=== PATIENT | female | born 1990 | race Caucasian/White ===

== ENCOUNTER → 2016-10-29 | Outpatient (CLI) | payer BC ==
[~2016-10-29] MED LIST: BIRTH CONTROL TOP; PRENTAB26 PO; ZNTT/150 PO
== END | disposition home or self-care (01) ==
LOC: C.PAPS 07:50
PROVIDERS: ATTEND Obstetrics & Gynecology
DX: Z01.419 Encounter for gynecological examination (general) (routine) without abnormal findings (principal); Z30.9 Encounter for contraceptive management, unspecified

== ENCOUNTER 2018-11-05 14:15 | Inpatient (IN) ==
[2018-11-05] MEDS ORDERED: LACTATED RINGER'S 1,000 ML IV PRN (15:02)
[2018-11-05] MEDS ORDERED: OXYTOCIN 30 UNITS/500 ML BAG IV PRN ×3 (15:02→23:05)
--- NOTE | 2018-11-05 15:07 | History & Physical Report ---
Date of Service November 05, 2018 38 weeks sent over from the office where she was assessed with an amnio sure which was positive patient says she may have had. a gush of fluid at 8 PM yesterday and then she had some ongoing leakage this morning she waited to her appointment to address this with the physicians in the office at that time she was found to be 1 cm and AmniSure positive Assessment & Plan (1) PROM (premature rupture of membranes): PROM as much as 19 hours ago. GBS neg and no signs of chorio, so do not recommend antibiotics Admit, start pitocin. History of Present Illness Primary Care Provider: NO PCP Allergies Allergy/AdvReac Type Severity Reaction Status Date / Time nitrofurantoin Allergy Severe throat Verified 06/03/18 22:02 swells sob, ITCHY RASH Home Medications Home Medications Medication Instructions Recorded Confirmed Type PNV cmb#95-ferrous fumarate-FA 1 tab PO DAILY 06/03/18 11/05/18 History [] citalopram [Celexa] 40 mg PO DAILY 06/03/18 11/05/18 History pantoprazole [Protonix] 40 mg PO DAILY 06/03/18 11/05/18 History Patient History Medical History Disruption of perineal obstetric wound, condition or complication Acid reflux Anxiety Arthritis Depression Gestational diabetes mellitus Irritable bowel syndrome Surgical History History of myringotomy Family History Other No significant family history Social History Preferred Language: [place]i Communication Ability: Effective Communication Clerk Required: No Beliefs That Will Affect Care: None marital status: Current Living Situation: Spouse Other Information That Helps Us Care for You: No Feels Safe at Home: Yes Smoking Status: Never smoker Do You Dip or Chew Tobacco: No Second Hand Exposure: No Tobacco Cessation Education Requested by Patient: No Hx Alcohol Use: No Hx Substance Use: No Physical Exam Constitutional: WD/WN, vitals as above Respiratory: normal respiratory effort, lungs clear to auscultation Cardiovascular: RRR, no murmur, no edema Genitourinary: OB Exam Abdomen: + vertex Manual OB Exam: + cervical dilation 2 cm and + cervical effacement 50% Results & Data Vital Signs (Past 12 Hours) Vital Signs Temp Pulse Resp BP 11/05/18 14:30 37.0 C 97 H 20 145/75 H
[2018-11-05 15:23] LABS: Hemoglobin 11.8 g/dL (12.0-16.0); Mean Corpuscular Volume 87.1 fL (80-100); Mean Platelet Volume 11.1 fL (7.4-10.4); Platelet Count 205 K/uL (130-400); RDW Coefficient of Variation 14.2 % (11.5-14.5); RDW Standard Deviation 44.6 fL (36.4-46.3); Red Blood Count 4.02 M/uL (4.2-5.4); White Blood Count 10.46 K/uL (4.8-10.8)
[2018-11-05 15:43] LABS: Mean Corpuscular Hgb Conc 33.7 g/dL (32-36)
[2018-11-05] MEDS ORDERED: ACETAMINOPHEN 325 MG TAB PO PRN ×2 (21:44→23:05)
[2018-11-05] MEDS ORDERED: ONDANSETRON INJ 2 MG/ML 2 ML VIAL IV PRN (21:44)
--- NOTE | 2018-11-05 22:44 | Procedure Note ---
Vaginal Delivery Summary Date of Service November 05, 2018 Spontaneous vaginal delivery of live vigorous infant over occiput anterior position patient was unmedicated and delivered over a second-degree tear mouth and then there is resection there was no nuchal cord fluid was clear gentle traction no excessive force was used baby vigorous cord clamped after 1 minute cord gases obtained cord blood obtained placenta removed with gentle traction IV Pitocin started local anesthetic injected into the vagina to allow repair of the second-degree tear with 3-0 Vicryl sponge and instrument counts correct bleeding minimal after uterine tone improved estimate blood loss 250 mL
[2018-11-05] MEDS ORDERED: SUPERCREAM 0.870% 15 GM JAR EXT PRN (23:05)
[2018-11-05] MEDS ORDERED: DIPHTHERIA/TETANUS/PERTUSSIS 0.5 ML SYR/VIAL IM ONE (23:05)
[2018-11-05] MEDS ORDERED: BISACODYL 10 MG SUPP PR PRN (23:05)
[2018-11-05] MEDS ORDERED: BENZOCAINE 20% AER SPR 82.5 GM CAN EXT PRN (23:05)
[2018-11-05] MEDS ORDERED: ACETAMINOPHEN W/CODEINE #3 1 TAB PO PRN (23:05)
[2018-11-05] MEDS ORDERED: HYDROCORTISONE ACETATE 25 MG SUPP PR PRN (23:05)
[2018-11-05 23:10] LABS: Base Excess Cord Arterial Bld -4.3 mEq/L (-9-1.8); Base Excess Cord Venous Blood -4.4 mEq/L (-7.7-1.9); CO2 Cord Arterial Blood 59 mmHg (39.1-73.5); Cord Venous Blood HCO3 21 mmol/L (18.4-26.8); Cord Venous Blood PCO2 41 mmHg (30.4-57.2); Cord Venous Blood PO2 33 mmHg (14.1-43.3); Cord Venous Blood pH 7.33 (7.20-7.44); HCO3 Cord Arterial Blood 24 mmol/L (19.7-28.5); pH Cord Arterial Blood 7.23 (7.1-7.38)
[2018-11-05] MEDS: IBUPROFEN 600 MG TAB PO PRN (23:15)
--- NOTE | 2018-11-06 07:08 | Obstetrical Progress Note ---
Date of Service November 06, 2018 PPD #1 from spontaneous vaginal delivery the patient is doing well she is ambulating tolerating an oral diet she has no extremity pain she is breast- feeding well Assessment & Plan (1) PROM (premature rupture of membranes): day #1 continue current care care Physical Exam Vital Signs (Past 24 Hours) Last Vital Signs Temp 37.4 C 11/06/18 04:00 Pulse 85 11/06/18 04:00 Resp 20 11/06/18 04:00 BP 118/78 11/06/18 04:00 Pulse Ox 98 11/06/18 04:00 Constitutional WD/WN, vitals as above Respiratory normal respiratory effort, lungs clear to auscultation Cardiovascular RRR, no murmur, no edema Genitourinary Extremity exam is negative uterus is firm and nontender
[2018-11-06 07:17] LABS: Hematocrit (blood only) 31.8 % (37-47); Hemoglobin 10.6 g/dL (12.0-16.0); Mean Corpuscular Hgb Conc 33.3 g/dL (32-36); Mean Corpuscular Volume 87.6 fL (80-100); Mean Platelet Volume 10.9 fL (7.4-10.4); Platelet Count 200 K/uL (130-400); RDW Coefficient of Variation 14.4 % (11.5-14.5); RDW Standard Deviation 46.3 fL (36.4-46.3); Red Blood Count 3.63 M/uL (4.2-5.4)
[2018-11-06] MEDS: IBUPROFEN 600 MG TAB PO PRN ×3 (08:15→22:32)
[2018-11-06] MEDS: DOCUSATE SODIUM 100 MG CAP PO SCH ×2 (08:15→19:46)
[2018-11-06] MEDS: PRENATAL VITAMIN 1 TAB PO SCH (08:16)
[2018-11-06] MEDS: CITALOPRAM 40 MG TAB PO SCH (08:16)
[2018-11-06] MEDS: PANTOprazole 40 MG TAB PO SCH (08:16)
[2018-11-06] MEDS ORDERED: NON-FORMULARY MEDICATION (Pnv Cmb#95-Ferrous Fumarate-Fa [Prenatal] 1 TAB) PO SCH (09:00)
[2018-11-06] MEDS ORDERED: BISACODYL 5 MG TABEC PO SCH (20:00)
--- NOTE | 2018-11-07 07:20 | Obstetrical Progress Note ---
Date of Service November 07, 2018 Assessment & Plan (1) (spontaneous vaginal delivery): 28 year old day 1 s/p at 38 weeks and 0 days. Presented with PROM induced with pitocin * Vital Signs Reviewed and WNL * Blood type O+ GBS-, Rubella immune * Pain well controlled * Patient continuing to ambulate and use restroom without difficulty * Went over all discharge instructions with patient Subjective Ambulation: ambulating normally Voiding: no voiding problems Passing Gas:: Yes Diet Tolerance:: regular diet Lochia:: Small Feeding Type:: bottle feeding Current Pain Level(1-10): 4 Ms Daniel is doing very well today, no particular concerns or questions. Constitutional: no fever and no chills Respiratory: no cough and no dyspnea Cardiovascular: no chest pain, no dyspnea and no calf pain Gastrointestinal: no nausea and no vomiting Physical Exam Vital Signs (Past 24 Hours) Last Vital Signs Temp 37.1 C 11/06/18 23:15 Pulse 81 11/06/18 23:15 Resp 18 11/06/18 23:15 BP 117/80 11/06/18 23:15 Pulse Ox 100 11/06/18 16:00 Constitutional cooperative and comfortable; no acute distress Respiratory normal respiratory effort, lungs clear to auscultation Cardiovascular Rate/Rhythm: regular rate and regular rhythm Heart Sounds: no click, no gallop, no murmur and no cardiac rub Extremities: no calf tenderness Gastrointestinal (Abdomen) Percussion/Palpation: abdomen soft (Around uterus); abdomen nontender Genitourinary OB Exam Abdomen: + fundal height (Fundus firm, one cm below umbilicus) Resident Activity Tracking Resident Involvement: Resident Care Provided Care Provided: OB Delivery
[2018-11-07 07:26] LABS: Hematocrit (blood only) 31.1 % (37-47); Hemoglobin 10.2 g/dL (12.0-16.0)
[2018-11-07] MEDS: PANTOprazole 40 MG TAB PO SCH (08:29)
[2018-11-07] MEDS: DOCUSATE SODIUM 100 MG CAP PO SCH (08:29)
[2018-11-07] MEDS: CITALOPRAM 40 MG TAB PO SCH (08:29)
[2018-11-07] MEDS: PRENATAL VITAMIN 1 TAB PO SCH (08:29)
[2018-11-07] MEDS: IBUPROFEN 600 MG TAB PO PRN ×2 (08:29→13:17)
== END 2018-11-07 17:05 | disposition home or self-care (01) | DRG 807 ==
LOC: 4S1 14:15 → 4S2 11-06 01:25